=== PATIENT | female | born 1995 | race Caucasian/White ===

== ENCOUNTER 2017-12-08 12:43 | Emergency (ER) | payer OTHER ==
[2017-12-08] MEDS: LIDOCAINE 2% W/EPIN INJ 20ML **PRES FREE INJ (13:15)
== END 2017-12-08 14:07 | disposition home or self-care (01) ==
LOC: M ED 12:43
DX: S01.81XA Laceration without foreign body of other part of head, initial encounter (principal); V49.49XA Driver injured in collision with other motor vehicles in traffic accident, initial encounter; Y92.410 Unspecified street and highway as the place of occurrence of the external cause
CPT/HCPCS: 70450